=== PATIENT | female | born 1945 | race Caucasian/White ===

== ENCOUNTER → 2020-01-11 | Outpatient (CLI) | payer OTHER ==
[~2020-01-11] MED LIST: ALLEGRA ALLERG180 MG PO; ASPIR 8181 MG PO; CATAPRES0.2 MG PO; CENTRUM SILVER1 EAC4 PO; CITRACAL + D E1 EACH PO; CRESTOR10 MG PO; CYMBALTA30 MG PO; HYDROCODONE-AP1 EAC6 PO; KRILL OIL 1,001 EAC1 PO; MAGOX 400400 MG PO; PROTONIX 20 MG20 M1 PO; SINGULAIR 10 MG10 M1 PO; SYNTHROID150 MCG PO; VITAMIN E400 UNI6 PO
== END ==
LOC: SJCVCIMAG 10:57
PROVIDERS: ATTEND Podiatrist Foot & Ankle Surgery
DX: I70.201 Unspecified atherosclerosis of native arteries of extremities, right leg (principal)